=== PATIENT | female | born 1990 | race Caucasian/White ===

== ENCOUNTER 2022-04-05 09:02 | Emergency (ER) | payer OTHER, SELFPAY ==
[2022-04-05] MEDS ORDERED: diphenhydrAMINE 25 MG CAP ONE (09:38)
[2022-04-05] MEDS ORDERED: predniSONE 20 MG TAB ONE (09:39)
== END 2022-04-05 10:44 | disposition home or self-care (01) ==
LOC: CSHERS 09:02
DX: G51.0 Bell's palsy (principal); T78.40XA Allergy, unspecified, initial encounter; E66.9 Obesity, unspecified
CPT/HCPCS: 99283; J7512

== ENCOUNTER 2023-04-10 12:48 | Emergency (ER) | payer OTHER | END 2023-04-10 13:32 | disposition short-term general hospital (02) | LOC: CSHERS 12:48 | DX: R20.0 Anesthesia of skin (principal); R20.2 Paresthesia of skin; E66.9 Obesity, unspecified | CPT/HCPCS: 36416 ==